=== PATIENT | male | born 1980 | race African-American/Black ===

== ENCOUNTER 2018-09-25 01:51 | Inpatient (IN) | payer OTHER ==
[~2018-09-25] VITALS: Ht 180.3 cm; Wt 65.9 kg
[2018-09-25 01:56] VITALS: Ht 180.3 cm; Wt 65.9 kg
[2018-09-25 02:35] LABS: BASOPHIL % 1.7 % (0-2)
[2018-09-25 02:41] LABS: PLATELET COUNT 122 x10^3mcL (130-400); RED CELL DISTRIBUTION WIDTH 16.3 % (11.5-14.5)
[2018-09-25 02:49] LABS: ALKALINE PHOSPHATASE 112 U/L (46-116); ALT/SGPT 37 U/L (16-63); AST/SGOT 76 U/L (15-37); BILIRUBIN TOTAL 0.95 mg/dL (0.20-1.00); CALCIUM 8.5 mg/dL (8.5-10.1); CARBON DIOXIDE 25.8 mmol/L (21-32); CREATININE SERUM 0.9 mg/dL (0.7-1.3); GFR1 > 60 mL/min; GLUCOSE SERUM 113 mg/dL (74-106); LIPASE 415 IU/L (73-393); TOTAL PROTEIN, SERUM 8.1 g/dL (6.4-8.2)
[2018-09-25 03:16] LABS: SODIUM SERUM 133 mmol/L (136-145)
[2018-09-25 03:19] LABS: CHLORIDE SERUM 93 mmol/L (98-107); POTASSIUM SERUM 2.5 mmol/L (3.5-5.1)
[2018-09-25 06:21] LABS: PHOSPHOROUS 2.7 mg/dL (2.5-4.9)
[2018-09-25 06:23] VITALS: BP 128/89
[2018-09-25 06:23] LABS: T3 TOTAL 1.22 ng/mL
[2018-09-25 06:26] LABS: CHOLESTEROL/HDL RATIO 1.7; MAGNESIUM 0.9 mg/dL (1.8-2.4)
[2018-09-25 06:47] LABS: FREE T4 0.82 ng/dL (0.76-1.46); FREE THYROXINE INDEX 2.6 ug/dL (1.4-4.5); T4(THYROXINE) 8.4 ug/dL (4.7-13.3)
[2018-09-25 08:13] VITALS: BP 129/89
[2018-09-25 12:21] LABS: UA SPECIFIC GRAVITY <=1.005 (1.005-1.035); microscopic required? YES; urine erythrocyte 2+ (NEGATIVE)
[2018-09-25 12:33] LABS: AMPHETAMINE QUAL UR NONE DETECTED (See below)
[2018-09-25 12:43] VITALS: BP 131/94
[2018-09-25 16:36] VITALS: BP 141/87
[2018-09-25 21:01] VITALS: BP 135/85
[2018-09-26 05:33] VITALS: BP 124/87
[2018-09-26 07:51] LABS: CALCIUM 8.1 mg/dL (8.5-10.1); CHLORIDE SERUM 103 mmol/L (98-107); CREATININE SERUM 0.7 mg/dL (0.7-1.3); GFR1 > 60 mL/min; GLUCOSE SERUM 111 mg/dL (74-106); MAGNESIUM 1.2 mg/dL (1.8-2.4); PHOSPHOROUS 3.7 mg/dL (2.5-4.9); SODIUM SERUM 138 mmol/L (136-145)
[2018-09-26 08:34] LABS: BASOPHIL % 0.3 % (0-2)
[2018-09-26 08:35] LABS: PLATELET COUNT 88 x10^3mcL (130-400); RED CELL DISTRIBUTION WIDTH 16.8 % (11.5-14.5)
[2018-09-26 09:09] VITALS: BP 131/88
[2018-09-26 09:53] LABS: POTASSIUM SERUM 2.8 mmol/L (3.5-5.1)
[2018-09-26 14:00] VITALS: BP 141/96
[2018-09-26 16:45] VITALS: BP 139/98
[2018-09-26 21:30] VITALS: BP 147/98
[2018-09-27 01:05] VITALS: BP 143/103
[2018-09-27 05:43] VITALS: BP 158/102
[2018-09-27 06:13] LABS: CALCIUM 8.9 mg/dL (8.5-10.1); CARBON DIOXIDE 24.6 mmol/L (21-32); CHLORIDE SERUM 106 mmol/L (98-107); CREATININE SERUM 0.8 mg/dL (0.7-1.3); GFR1 > 60 mL/min; GLUCOSE SERUM 104 mg/dL (74-106); MAGNESIUM 1.9 mg/dL (1.8-2.4); POTASSIUM SERUM 3.3 mmol/L (3.5-5.1); SODIUM SERUM 141 mmol/L (136-145)
[2018-09-27 06:43] LABS: BASOPHIL % 0.3 % (0-2)
[2018-09-27 07:14] LABS: PLATELET COUNT 94 x10^3mcL (130-400); RED CELL DISTRIBUTION WIDTH 16.6 % (11.5-14.5)
== END 2018-09-27 05:36 | disposition left against medical advice (07) | DRG 249 ==
LOC: ED 01:51 → DU 05:13
PROVIDERS: Emergency Medicine; Family Medicine
DX: K52.9 Noninfective gastroenteritis and colitis, unspecified (principal); K85.20 Alcohol induced acute pancreatitis without necrosis or infection; D69.6 Thrombocytopenia, unspecified; E83.42 Hypomagnesemia; E87.1 Hypo-osmolality and hyponatremia; E87.8 Other disorders of electrolyte and fluid balance, not elsewhere classified; E87.6 Hypokalemia; J45.909 Unspecified asthma, uncomplicated; F17.210 Nicotine dependence, cigarettes, uncomplicated; R31.9 Hematuria, unspecified; F19.10 Other psychoactive substance abuse, uncomplicated; D64.9 Anemia, unspecified
CPT/HCPCS: 83880; 84439; 87046; 87046-59; 87491; 87591; G0480; J2270; J2405; J3475; J3480; J7030; Q0092